=== PATIENT | male | born 1990 | race Caucasian/White ===

== ENCOUNTER 2024-02-14 00:37 | Outpatient (CLI) | payer OTHER, SELFPAY ==
--- OUTSIDE RECORDS SUMMARY | 2024-02-14 00:49 | XMS_ITS | Clinical Summary ---
Author Organization [facility] Address [address] [place] [address] Care Team Providers Care Book Trimmer Name Role Phone Jorge Shane MD Primary Care Provider Social History Tobacco Use Types Packs/Day Years Used Date Smoking Tobacco: Never Assessed Sex and Gender Information Value Date Recorded Sex Assigned at Not on file Gender Identity Not on file Sexual Orientation Not on file Plan of Treatment Health Maintenance Due Date Last Done Comments Hepatitis C Screen 1992 Hepatitis B Vaccine (1 of 3 - 19+ 3-dose series) 01/15 COVID-19 Vaccine ( season) 2023 Care Teams Book Trimmer Relationship Specialty Start Date End Date Jorge Shane MD [address] [place] [id number] PCP - General 05/01/15
--- OUTSIDE RECORDS SUMMARY | 2024-02-14 00:49 | XMS_ITS | Encounter Summary ---
Author Organization [facility] Address [address] [place] [address] Care Team Providers Care Local Hazmat Driver Name Role Phone Unavailable Primary Care Provider Unavailabl e Encounter Details Date Type Department Care Team (Late st Contact Info) Description 01/14/2003 10:06 EDT - 01/14/2003 11:59 EDT Hospital Encounter [facility] [address] [place] [address] Pedro Olmos MD [address] [place] [phone] Discharge Disposition: Auto Discharge Social History Tobacco Use Types Packs/Day Years Used Date Smoking Tobacco: Never Assessed Sex and Gender Information Value Date Recorded Sex Assigned at Not on file Gender Identity Not on file Sexual Orientation Not on file documented as of this encounter Discharge Disposition Disposition Code Departure Means Destination Auto Discharge documented in this encounter Plan of Treatment Not on file documented as of this encounter Visit Diagnoses Not on filedocumented in this encounter
--- OUTSIDE RECORDS SUMMARY | 2024-02-14 00:49 | XMS_ITS | Clinical Summary ---
[place] [address] Care Team Providers Care Emergency Response Technician Name Role Phone Unknown Primary Care Provider Unavailabl e Allergies No known active allergies Medications No known medications Active Problems Problem Noted Date Diagnosed Date Tinea versicolor 10/22/2011 Social History Tobacco Use Types Packs/Day Years Used Date Smoking Tobacco: Never Assessed Sex and Gender Information Value Date Recorded Sex Assigned at Not on file Gender Identity Not on file Sexual Orientation Not on file Plan of Treatment Health Maintenance Due Date Last Done Comments HIV screen 01/15/2010 Hepatitis C Screening 01/15/2010 Hepatitis B vaccine (0-59 yrs) (1) 01/15/2011 Tdap adult 01/15/2011 Tetanus vaccine 01/15/2011 Covid-19 Vaccine ( - 2022- season) 2023 Influenza (Flu) vaccine (1 o f 1 - Influenza standard series) 02/23/2024 Care Teams Emergency Response Technician Relationship Specialty Start Date End Date Unknown None PCP - General 11/07/21
--- OUTSIDE RECORDS SUMMARY | 2024-02-14 00:49 | XMS_ITS | Referral Summary ---
Author Organization [facility] Address [address] [place] [address] Care Team Providers Care Director Of Investigations Name Role Phone Jorge Shane MD Primary Care Provider [phone] Social History Tobacco Use Types Packs/Day Years Used Date Smoking Tobacco: Never Assessed Sex and Gender Information Value Date Recorded Sex Assigned at Not on file Gender Identity Not on file Sexual Orientation Not on file Plan of Treatment Not on file Care Teams Director Of Investigations Relationship Specialty Start Date End Date Jorge Shane MD [address] [place] [phone] PCP - General 05/01/15
--- OUTSIDE RECORDS SUMMARY | 2024-02-14 00:50 | XMS_ITS | Encounter Summary ---
[place] [address] Care Team Providers Care Curriculum And Instruction Director Name Role Phone Jorge Shane MD Primary Care Provider [phone] Reason for Visit * Reason Comments Dermatitis Encounter Details Date Type Department Care Team (Late st Contact Info) Description 10/22/2011 5:15 PM EDT Office Visit Dermatology [address] [place] [address] [address] [place] [address] Eliel Brooks MD [address], [place] [address] Tinea versicolor (Primary Dx) Social History Tobacco Use Types Packs/Day Years Used Date Smoking Tobacco: Never Assessed Sex and Gender Information Value Date Recorded Sex Assigned at Not on file Gender Identity Not on file Sexual Orientation Not on file documented as of this encounter Progress Notes * Eliel Brooks MD - 10/22/2011 5:48 PM EDT Problem: Rash. Andry is a 21-year-old who for the last five months has noted a dry, scaling rash on the sides of his torso, his back, and his arms. He has been using different creams but this has not brought resolution. He is not on any other medications. He is not taking anything anymore for acne. He is now 21. Physical examination reveals a pleasant 21-year-old who has faintly recognizable alvarez patches which are slightly hyperkeratotic and show on KATIE evidence of hyphae in the spaghetti and meatball pattern. This is consistent with tinea versicolor. Numerous more spore forms are noted than I regularly see with tinea versicolor. Differential would also include reticulated papillomatosis of [place] and [place]. Assessment and Plan: Tinea versicolor. a. Begin ketoconazole 200 mg take one p.o. b.i.d. for a week and then discontinue. Take on a full stomach, #14 dispensed with zero refills. b. Also begin daily use of selenium sulfide 2.5% lotion, apply for two or three minutes and then rinse off for a week and then use once every one to two weeks, 120 mL dispensed with p.r.n. refills. c. If not seeing improvement, would then suggest a trial of minocycline. Return to clinic here p.r.n. Copy: Patito Lanza M.D. documented in this encounter Plan of Treatment Not on file documented as of this encounter Visit Diagnoses Diagnosis Tinea versicolor- Primary Pityriasis versicolor documented in this encounter Care Teams Curriculum And Instruction Director Relationship Specialty Start Date End Date Jorge Shane MD [address] [place] [address] PCP - General 05/16/10 11/06/21 documented as of this encounter
[2024-02-14 14:04] LABS: Hemoglobin A1C 5.5 % (<5.7)
[2024-02-14 14:14] LABS: Calculated LDL 130 mg/dL (<100); Cholesterol 213 mg/dL (<200); HDL Cholesterol 44 mg/dL (40-60); Triglyceride 199 mg/dL (<150)
== END 2024-02-14 00:38 | disposition home or self-care (01) ==
LOC: LBO 00:38
PROVIDERS: PCP Nurse Practitioner Family; Visit Provider Nurse Practitioner Family
DX: Z13.220 Encounter for screening for lipoid disorders (principal); Z13.1 Encounter for screening for diabetes mellitus
CPT/HCPCS: 36415; 80061; 83036